=== PATIENT | female | born 2005 | race Caucasian/White ===

== ENCOUNTER 2024-09-29 19:16 | Emergency (ER) | payer OTHER, SELFPAY ==
[2024-09-29 19:17] VITALS: BP 116/68; PULSE 108; RESP 18; TEMP 37; O2SAT 96; BMI 26.6
[2024-09-29 20:07] LABS: Absolute Lymphocyte Count 1.53 X10^3/uL (0.83-4.51); Absolute Neutrophil Count 7.1 X10^3/uL (2.0-7.7); Basophil# 0.03 X10^3/uL; Basophil% 0.3 % (0-1); Eosinophil# 0.08 X10^3/uL; Eosinophils% 0.8 % (0-5); Hematocrit 46.2 % (37-47); Hemoglobin 15.3 g/dL (12.0-15.0); Lymphocyte # 1.53 X10^3/ul (0.83-4.51); Mean Corp Hgb Conc 33.1 g/dL (32-36); Mean Corpuscular Hgb 28.8 pg (27.0-32.0); Mean Platelet Vol. 10.7 fl (6.2-12.0); Monocyte# 0.83 X10^3/uL; Monocyte% 8.7 % (0-10); NRBC Flagged by Analyzer 0 % (0-5); Neutrophil # 7.07 X10^3/uL (2.7-7.7); Neutrophil % 73.9 % (47-70); Platelet Count 293 K/mm3 (150-450); RBC Distribution Width CV 12.5 % (11.6-14.6); RBC Distribution Width SD 39.7 fl (35.1-43.9); Red Blood Count 5.31 M/mm3 (4.2-5.4); White Blood Count 9.6 K/mm3 (4.4-11.0)
[2024-09-29 20:16] VITALS: BP 111/60; PULSE 98; RESP 18
[2024-09-29 20:29] LABS: Internal QC Validated? YES +Cl - CLEAR BKGD; Pregnancy, Serum, hCG Quali. NEGATIVE Negative; Record Kit Lot#, Serum Preg. 929381
[2024-09-29 20:38] LABS: Amphetamine Urine NEGATIVE (<1000 ng/mL); Anion Gap 14 (5-15); BUN 9 mg/dL (4-19); Barbiturate Urine NEGATIVE (< 200 ng/mL); Benzodiazepine Urine PRESUMPTIVE POSITIVE (< 200 ng/mL); Buprenorphine Urine NEGATIVE (< 200 ng/mL); Calcium,Total 9.5 mg/dL (7.6-11.0); Carbon Dioxide 22.1 mmol/L (21.0-32.0); Chloride 102 mmol/L (98-108); Cocaine Urine NEGATIVE (< 300 ng/mL); Creatinine, Serum 1.09 mg/dL (0.70-1.20); EST Glomerular Filtration Rate 75 (>60); Estimated Creatinine Clearance 79.21 ml/min (50-250); Fentanyl, Urine NEGATIVE; Glucose 75 mg/dL (70-99); Methadone Urine NEGATIVE (< 300 ng/mL); Opiates Urine NEGATIVE (< 300 ng/mL); Oxycodone, Urine NEGATIVE (< 100 ng/mL); PCP Urine NEGATIVE (< 25 ng/mL); Potassium 3.4 mmol/L (3.3-5.1); Sodium Level 138 mmol/L (133-145); THC Urine NEGATIVE (< 50 ng/mL)
[2024-09-29 20:40] LABS: Alcohol, Blood (Medical)-Serum < 10.1 mg/dL (<=10.0)
--- NOTE | 2024-09-29 20:55 | EX.ED.VIS.PS ---
HPI HPI - Psych History of Present Illness Chief Complaint: Suicidal Detail of Chief Complaint: Depression and suicidal ideation Informant: patient Narrative Narrative: Patient presents to the emergency department via EMS with complaint of depression and feeling suicidal. Patient states that she got out of the shower tonight and felt really lightheaded and dizzy and felt like she might pass out. She laid on her bed and the person she lives with thought she looked very pale so called the squad for her. EMS was then told that patient has been feeling depressed and suicidal. She is not been eating or sleeping well. Her biological father 2 weeks ago by suicide. Patient does not have a plan. She denies auditory or visual hallucinations. She denies recent illness. PFSH PFS Medical History no medical history Home Medications ?Medication ?Instructions ?Recorded ?Last Taken ?Type NK 09/29/24 Unknown History Allergy/AdvReac Type Severity Reaction Status Date / Time No Known Allergies Allergy Verified 09/29/24 19:22 Social History Smoking Status: Current every day smoker tobacco type: e-cigarettes ROS ROS ED Review of Systems ROS Unobtainable: other Constitutional Constitutional ED: Reports lethargy; Denies chills, fever(s), sweats or weight loss Eyes Eyes: Denies blurry vision, change in vision or diplopia ENT ENT ED: Denies rhinorrhea or sore throat Cardiovascular Cardiovascular: Denies chest pain, orthopnea or racing heartbeat Respiratory/Chest Respiratory/Chest: Denies cough, dyspnea, dyspnea on exertion, orthopnea or sputum Gastrointestinal Gastrointestinal: Denies abdominal pain, diarrhea, nausea or vomiting Genitourinary Genitourinary ED: Denies dysuria, hematuria or urinary frequency Musculoskeletal Musculoskeletal: Denies arthralgias, back pain, myalgias or neck pain Integumentary Denies abscess, Abrasions or rash Neurologic Neurologic: Denies headache(s) or weakness Psychiatric Psychiatric: Reports depression and suicidal thoughts; Denies anxiety Endocrine Endocrinology: Denies polydipsia, polyphagia or polyuria Hematologic/Lymphatic Hematologic/Lymphatic: Denies easy bleeding, easy bruising or lymphadenopathy Allergic/Immunologic Allergic/Immunologic ED: Denies mouth swelling, tongue swelling or urticaria EXAM Physical Exam Const Vital Signs: 09/29/24 19:17 09/29/24 20:16 09/29/24 21:00 Temperature 98.6 F 98.5 F Temperature Source Oral Oral Pulse Rate 108 H 98 99 Respiratory Rate 18 18 16 Blood Pressure 116/68 111/60 115/78 Blood Pressure Mean 84 77 90 Pulse Ox 96 96 Oxygen Delivery Method Room Air Room Air Positive well nourished and well developed General Appearance ED: well developed and NAD HEENT Reports TM's clear and moist mucous membranes normocephalic and atraumatic; Negative for trauma or tenderness Tympanic Membrane ED: Yes TM's clear Eyes PERRL and EOMs intact bilaterally General Eye ED: Negative for pale conjunctiva or scleral icterus Neck no lymphadenopathy, supple and no JVD General: Negative for tenderness Chest Wall inspection of chest normal and palpation of chest normal Chest: Negative for tenderness Resp normal respiratory effort and clear to auscultation bilaterally Effort and Inspection: Negative for respiratory distress or pain with movement Auscultation: Negative for rhonchi, wheezes or diminished lung sounds Cardio regular rate, regular rhythm, S1 normal heart sound, S2 normal heart sound and no murmurs Peripheral Pulses: pulses 2+ throughout GI normal to inspection, nondistended, normoactive bowel sounds, soft to palpation, non-tender, non-distended and no masses Back/Spine no CVA tenderness and no thoracic nor lumbar tenderness Extremity normal to inspection General Extremety ED: Negative for edema General Extremity: Negative for edema Neuro oriented x3, CN's II-XII intact bilaterally, no sensory deficits noted and gait normal Sensorium / Orientation: awake, alert, oriented to person, oriented to place and oriented to time Motor Exam: strength 5/5 throughout and strength abnormal Psych mental status grossly normal Skin no rashes or lesions noted and no wounds MDM MDM MDM Narrative Medical decision making narrative: Patient presents with depression and thoughts of self-harm for about 2 weeks since her father via suicide. Has been seeing a primary care physician and recently diagnosed with a UTI and currently on an antibiotic. Had an episode this evening that likely was a vasovagal episode after showering and that is the main reason why the EMS was called. Her symptoms have currently resolved. CBC was obtained showed a white count of 9.6 with hemoglobin 15.3 and platelet count of 293. Chemistries unremarkable. Urine tox screen positive for benzodiazepines which she was prescribed recently to help her sleep at night. Alcohol was negative. Patient was evaluated by health social work professor and it is felt that she can be safety planned. The family that is taken her in and she is staying with also is here with her and they are comfortable taking her home. Patient believes she can keep her self safe. She has no plan on harming herself and is never attempted to kill herself. She has cut herself in the past to relieve anxiety but not for a long time. Patient advised to return to the ER if persistent thoughts of self-harm or condition should worsen anyway Lab Data Attestation: I reviewed the patient's lab results. Labs: Laboratory Results - last 24 hr 09/29/24 19:19 WBC 9.6 RBC 5.31 Hgb 15.3 H Hct 46.2 MCV 87.0 MCH 28.8 MCHC 33.1 RDW Std Deviation 39.7 RDW Coeff of Petar 12.5 Plt Count 293 MPV 10.7 Immature Gran % (Auto) 0.300 Neut % (Auto) 73.9 H Lymph % (Auto) 16.0 L [place] % (Auto) 8.7 Eos % (Auto) 0.8 Baso % (Auto) 0.3 Absolute Neuts (auto) 7.1 Absolute Lymphs (auto) 1.53 Nucleated RBC % 0 Sodium 138 Potassium 3.4 Chloride 102 Carbon Dioxide 22.1 Anion Gap 14 BUN 9 Creatinine 1.09 Estim Creat Clear Calc 79.21 Est GFR (MDRD) Non-Af 75 BUN/Creatinine Ratio 8.0 L Glucose 75 Calcium 9.5 Serum , Qual NEGATIVE Urine Opiates Screen NEGATIVE U Buprenorphine Qual NEGATIVE Ur Oxycodone Screen NEGATIVE Urine Methadone Screen NEGATIVE Urine Fentanyl Screen NEGATIVE Ur Barbiturates Screen NEGATIVE Ur Phencyclidine Scrn NEGATIVE Ur Amphetamines Screen NEGATIVE U Benzodiazepines Scrn PRESUMPTIVE POSITIVE Urine Cocaine Screen NEGATIVE U Cannabinoids Screen NEGATIVE Ethyl Alcohol < 10.1 Discharge Plan Triage Chief Complaint: Suicidal ED Provider: Alfred Toscano Dx/Rx/DC Orders Clinical Impression: Vasovagal near syncope, Depression Instructions: CONTRACT, No Harm, ED Depression, ED Near-Fainting- Vagal Reaction Prescriptions: No Action NK Primary Care Provider: Care Physician,No Primary Referrals: Care Physician,No Primary [Primary Care Provider] - Activity Restrictions/Additional Instructions: Follow-up with referrals given to you by health social work professor and also with primary care physician Print Language: Fijian Disposition Disposition: Home, Self Care
[2024-09-29 21:00] VITALS: BP 115/78; PULSE 99; RESP 16; TEMP 36.9; O2SAT 96
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
[2024-09-29 22:00] VITALS: BP 110/71; PULSE 91; RESP 16; RESP 18; TEMP 36.8; O2SAT 97
--- NOTE | 2024-09-30 14:35 | CM.ED ---
Social work This SW received handoff from Portia AVENDAÑO to check in on this patient via phone call due to patient presenting to [facility] ED with SI yesterday and receiving a safety plan following mental health assessment by Portia AVENDAÑO. Patient stated patient was doing well and had been looking into counseling information provided. Patient was reminded of ability to call Crisis or return to [facility] ED if feelings continued/worsened. Patient stated understanding and denied further needs at this time. Kristal Duarte, BARRATTE OPERATOR, ZIPPER SLIDE ATTACHER
== END 2024-09-29 22:31 | disposition home or self-care (01) ==
PROVIDERS: Emergency Provider Emergency Medicine; Visit Provider Emergency Medicine
DX: R45.851 Suicidal ideations (principal); R55 Syncope and collapse; F32.A Depression, unspecified; F17.290 Nicotine dependence, other tobacco product, uncomplicated; Z63.4 Disappearance and death of family member
CPT/HCPCS: 80048; 80307; 82077; 84703; 85025; 99284